=== PATIENT | female | born 1980 | race Caucasian/White ===

== ENCOUNTER 2017-05-06 21:24 | Emergency (ER) | payer MEDICAID ==
--- NOTE | 2017-05-06 22:27 | EDPHY ---
H & P Smoking Status: Never smoked Time Seen by Provider: 05/06/17 22:25 HPI/ROS: CHIEF COMPLAINT: Delusional, paranoid, can't sleep HISTORY OF PRESENT ILLNESS: 36-year-old female presents to the emergency department with her boyfriend feeling delusional and paranoid. The patient states that she has not slept for the last 7 days because "I am trying to purge all these bad thoughts from my head ". No reported trauma. Does not abuse drugs or alcohol. The patient denies chest pain or difficulty breathing. No reported trauma. Boyfriend states that she has never acted like this in the past. She has no vomiting or diarrhea. She is asking for something to make her throw up. REVIEW OF SYSTEMS: Constitutional: No fever, no chills. Eyes: No double or blurry vision. ENT: No sore throat. Respiratory: No cough, no shortness of breath. Cardiac: No chest pain. Gastrointestinal: No abdominal pain, vomiting or diarrhea. Genitourinary: No dysuria. Musculoskeletal: No neck or back pain. Skin: No rashes. Neurological: No headache. (Evelia Senior) Past Medical/Surgical History: Negative (Evelia Senior) Social History: Single (Evelia Senior) Physical Exam: General Appearance: Alert, no distress. Extremely anxious. Eyes: Pupils equal and round. Extraocular motions are all intact. ENT: Mouth: Mucous membranes moist. Respiratory: No wheezing, rhonchi, or rales, lungs are clear to auscultation. Cardiovascular: Regular rate and rhythm. Gastrointestinal: Abdomen is soft and nontender, no masses, no rebound or guarding, bowel sounds normal. Neurological: Uncooperative, cannot determine. Skin: Warm and dry, no rashes. Musculoskeletal: Nontender to palpate along the cervical, thoracic or lumbar spine. Neck is supple. Extremities: Full range of motion and no peripheral edema. Psychiatric: Agitated. (Evelia Senior) Constitutional: Initial Vital Signs Temperature (C) 36.8 C 05/06/17 21:33 Heart Rate 78 05/06/17 21:33 Respiratory Rate 18 05/06/17 21:33 Blood Pressure 121/87 H 05/06/17 21:33 O2 Sat (%) 96 05/06/17 21:33 O2 Delivery Mode Room Air Allergies/Adverse Reactions: azithromycin Allergy (Verified 05/06/17 21:38) Home Medications: Medication Instructions Recorded NK [No Known Home Meds] 05/06/17 Medical Decision Making ED Course/Re-evaluation: 36-year-old female presents delusional and paranoid. She has been medically cleared. Mental health evaluation was attempted however the patient was uncooperative and became aggressive with staff and was uncooperative. The patient was given 10 mg of Haldol IM. Mental health associate programmer did speak with her boyfriend who states that she used LSD 3 months ago and has been paranoid since that time. She also uses marijuana edible 1 week ago and has been delusional paranoid since then has not been sleeping. After IM injection of Haldol, the patient is now sleeping. Mental health associate programmer will evaluate the patient in the morning when she is awake. (Evelia Senior) Patient has been re-evaluated by me at 7:30 a.m.. She is resting comfortably. She did have 1 episode of yelling however now again is resting comfortably. Mental health evaluation is pending (Dusty Blackburn) Differential Diagnosis: Altered mental status including but not limited to hypoglycemia, infectious process, electrolyte abnormality, head injury and intoxicants. (Evelia Senior) Care Turn Over: Care will be turned over to Dr. Jamison at 1am for disposition and plan. (Evelia Senior) 0100 care assumed by me pending mental health evaluation. 0700 patient has been increasingly agitated and pressured overnight. She has received Ativan x2, Haldol and Zyprexa. Still having difficulty sleeping and seems quite manic. She is pending mental health evaluation. She has been otherwise medically cleared. Patient is signed out to Dr. Blackburn pending mental health evaluation. (Cory Jamison) - Data Points Laboratory Results: Laboratory Results 05/06/17 22:15 05/06/17 22:15 05/06/17 05/06/17 05/06/17 22:15 22:15 22:15 WBC 8.09 10^3/uL 10^3/uL (3.80-9.50) RBC 4.47 10^6/uL 10^6/uL (4.18-5.33) Hgb 14.2 g/dL g/dL (12.6-16.3) Hct 40.1 % % (38.0-47.0) MCV 89.7 fL fL (81.5-99.8) MCH 31.8 pg pg (27.9-34.1) MCHC 35.4 g/dL g/dL (32.4-36.7) RDW 12.0 % % (11.5-15.2) Plt Count 241 10^3/uL 10^3/uL (150-400) MPV 9.6 fL fL (8.7-11.7) Neut % (Auto) 66.8 % % (39.3-74.2) Lymph % (Auto) 20.3 % % (15.0-45.0) [place] % (Auto) 11.6 % % (4.5-13.0) Eos % (Auto) 0.2 % L % (0.6-7.6) Baso % (Auto) 0.9 % % (0.3-1.7) Nucleat RBC Rel Count 0.0 % % (0.0-0.2) Absolute Neuts (auto) 5.40 10^3/uL 10^3/uL (1.70-6.50) Absolute Lymphs (auto) 1.64 10^3/uL 10^3/uL (1.00-3.00) Absolute Monos (auto) 0.94 10^3/uL H 10^3/uL (0.30-0.80) Absolute Eos (auto) 0.02 10^3/uL L 10^3/uL (0.03-0.40) Absolute Basos (auto) 0.07 10^3/uL 10^3/uL (0.02-0.10) Absolute Nucleated RBC 0.00 10^3/uL 10^3/uL (0-0.01) Immature Gran % 0.2 % % (0.0-1.1) Immature Gran # 0.02 10^3/uL 10^3/uL (0.00-0.10) Sodium 138 mEq/L mEq/L (134-144) Potassium 3.7 mEq/L mEq/L (3.5-5.2) Chloride 102 mEq/L mEq/L (97-110) Carbon Dioxide 22 mEq/l mEq/l (22-31) Anion Gap 14 mEq/L mEq/L (8-16) BUN 4 mg/dL L mg/dL (7-23) Creatinine 0.7 mg/dL mg/dL (0.6-1.0) Estimated GFR > 60 Glucose 105 mg/dL H mg/dL (70-100) Calcium 9.7 mg/dL mg/dL (8.5-10.4) TSH 1.550 uIU/mL uIU/mL (0.465-4.680) Urine Opiates Screen NEGATIVE (NEGATIVE) Urine Barbiturates NEGATIVE (NEGATIVE) Ur Phencyclidine Scrn NEGATIVE (NEGATIVE) Ur Amphetamine Screen NEGATIVE (NEGATIVE) U Benzodiazepines Scrn NEGATIVE (NEGATIVE) Urine Cocaine Screen NEGATIVE (NEGATIVE) U Marijuana (THC) Screen NEGATIVE (NEGATIVE) Ethyl Alcohol < 10 mg/dL mg/dL (0-10) Medications Given: Discontinued Medications Haloperidol Lactate (Haldol Injection) 10 mg IVP EDNOW ONE Stop: 05/06/17 23:00 Last Admin: 05/06/17 23:00 Dose: 10 mg Lorazepam (Ativan Injection) 2 mg IVP EDNOW ONE Stop: 05/06/17 23:00 Last Admin: 05/06/17 23:00 Dose: 2 mg Lorazepam (Ativan Injection) 2 mg IM EDNOW ONE Stop: 05/07/17 03:41 Last Admin: 05/07/17 03:46 Dose: 2 mg Olanzapine (Zyprexa Zydis) 10 mg PO EDNOW ONE Stop: 05/07/17 02:13 Last Admin: 05/07/17 02:13 Dose: 10 mg Departure - Departure Clinical Impression: Delusional disorder, Paranoid Condition: Fair Referrals: NONE *PRIMARY CARE P,. [Primary Care Provider] - As per Instructions
[2017-05-06 22:29] LABS: % IMMATURE GRANULYOCYTES 0.2 % (0.0-1.1); ABSOLUTE IMMATURE GRANULOCYTES 0.02 10^3/uL (0.00-0.10); ADD DIFF? NO; ADD MORPH? NO; ADD SCAN? NO; ATYPICAL LYMPHOCYTE FLAG 10 (0-99); FRAGMENT RBC FLAG 0 (0-99); HEMATOCRIT 40.1 % (38.0-47.0); HEMOGLOBIN 14.2 g/dL (12.6-16.3); LEFT SHIFT FLG 0 (0-99); LIPEMIA HEMOLYSIS FLAG 90 (0-99); MEAN CELL HEMOGLOBIN 31.8 pg (27.9-34.1); MEAN CELL HEMOGLOBIN CONCENTR. 35.4 g/dL (32.4-36.7); MEAN CELL VOLUME 89.7 fL (81.5-99.8); MEAN PLATELET VOLUME 9.6 fL (8.7-11.7); PLATELET CLUMPS FLAG 10 (0-99); PLATELET COUNT 241 10^3/uL (150-400); RED BLOOD CELL COUNT 4.47 10^6/uL (4.18-5.33)
[2017-05-06 22:36] LABS: ANION GAP 14 mEq/L (8-16); CALCIUM 9.7 mg/dL (8.5-10.4); CARBON DIOXIDE 22 mEq/l (22-31); CHLORIDE 102 mEq/L (97-110); CREATININE 0.7 mg/dL (0.6-1.0); ETHANOL SERUM < 10 mg/dL (0-10); GLOMERULAR FILTRATION RATE > 60; GLUCOSE 105 mg/dL (70-100); POTASSIUM 3.7 mEq/L (3.5-5.2); SODIUM 138 mEq/L (134-144)
[2017-05-06] MEDS ORDERED: HALOPERIDOL LACT 5 MG/ML INJ ONE (22:45)
[2017-05-06] MEDS ORDERED: LORazepam 2 MG/ML INJ ONE (22:45)
[2017-05-06] MEDS ORDERED: HALOPERIDOL LACT 5 MG/ML INJ IVP ONE (22:59)
[2017-05-06] MEDS ORDERED: LORazepam 2 MG/ML INJ IVP ONE (22:59)
[2017-05-07] MEDS ORDERED: OLANZapine DISINTEGR 10 MG TAB ONE (02:08)
[2017-05-07] MEDS ORDERED: OLANZapine DISINTEGR 10 MG TAB PO ONE (02:12)
[2017-05-07] MEDS ORDERED: LORazepam 2 MG/ML INJ IM ONE (03:40)
[2017-05-07] MEDS ORDERED: LORazepam 2 MG/ML INJ ONE (03:42)
[2017-05-07 18:32] VITALS: TEMP 98.1
[2017-05-08 00:21] VITALS: BP 109/65; PULSE 71; RESP 12; O2SAT 94
== END 2017-05-08 00:25 | disposition home or self-care (01) ==
DX: F22 Delusional disorders (principal)
CPT/HCPCS: 80305; 96374; G0480; J2060